=== PATIENT | female | born 1950 | race Caucasian/White ===

== ENCOUNTER 2023-03-22 12:31 | Outpatient (CLI) | payer MEDICARE, OTHER ==
[~2023-03-22 12:31] MED LIST: BARIUM SULFATE 700 MG TABLET PO ONE; barium sulfate 450ml oral suspension ONE
== END 2023-03-22 23:59 | disposition home or self-care (01) ==
LOC: RAD 12:31
PROVIDERS: ATTEND Internal Medicine Gastroenterology
DX: K44.9 Diaphragmatic hernia without obstruction or gangrene (principal); R13.10 Dysphagia, unspecified
CPT/HCPCS: 74220

== ENCOUNTER 2023-05-19 10:11 | Inpatient (IN) | payer MEDICARE, OTHER ==
[2023-05-18 10:09] LABS: BASOPHILS % (AUTO) 0.8 % (0-1); EOSINOPHILS # (AUTO) 0.1 X10'3 (0-0.9); EOSINOPHILS % (AUTO) 0.9 % (0-6); LYMPHOCYTES % (AUTO) 34.7 % (21-51); MEAN CORPUSCULAR HEMOGLOBIN 25.3 PG (27.0-31.0); MEAN CORPUSCULAR HGB CONC 33.5 g/dL (33.0-36.5); MEAN CORPUSCULAR VOLUME 75.3 FL (78-98); MEAN PLATELET VOLUME 7.8 FL (7.4-10.4); MONOCYTES # (AUTO) 0.4 X10'3 (0-0.9); MONOCYTES % (AUTO) 7.1 % (2-12); NEUTROPHILS # (AUTO) 3.3 X10'3 (1.8-7.7); NEUTROPHILS % (AUTO) 56.5 % (42-75); PRE OP HEMATOCRIT 35.1 % (35.0-45.0); PRE OP HEMOGLOBIN 11.8 g/dL (12.0-16.0); PRE OP PLATELET COUNT 265 X10'3 (140-440); RED BLOOD COUNT 4.66 X10'6 (4.20-5.60); RED CELL DISTRIBUTION WIDTH 15.9 % (11.5-14.5)
[2023-05-18 10:25] LABS: ALBUMIN 3.9 G/DL (3.4-5.0); ALBUMIN/GLOBULIN RATIO 1.1 (1.1-1.5); ALKALINE PHOSPHATASE 52 IU/L (46-116); BLOOD UREA NITROGEN 15 MG/DL (7-18); CHLORIDE 104 MMOL/L (99-107); CREATININE 0.88 MG/DL (0.40-0.90); PRE OP ALT 16 U/L (30-65); PRE OP ANION GAP 7 (8-16); PRE OP AST 17 U/L (10-37); PRE OP BILIRUB, TOTAL 0.3 MG/DL (0.0-1.0); PRE OP GLUCOSE 104 MG/DL (70-104); PRE OP SODIUM 141 MMOL/L (135-145); TOTAL CARBON DIOXIDE 30.4 MMOL/L (24-32); TOTAL PROTEIN 7.3 G/DL (6.4-8.2); eGFR 63 ML/MIN
[~2023-05-19] VITALS: Ht 160 cm; Wt 86.4 kg
[2023-05-19] VITALS (22 sets, daily range): BP systolic 101–148; BP diastolic 35–91
[2023-05-19] MEDS: cefazolin 2gm/D5W 100mL 100 ML IV ONE ×2 (05:30→11:03)
[~2023-05-19 10:11] MED LIST changes: -BARIUM SULFATE 700 MG TABLET PO ONE; +CLON-528 PO; +DULO60CA65 PO; +GABA-530 PO; +PHENYLephrine 10mg/ml 5ml injection IV ONE; +TIRZ2.5P SQ; +ZIPR80CA2 PO; -barium sulfate 450ml oral suspension ONE; +famotidine 20mg tablet PO ONE; +heparin 1,000 units/ml 10ml inj ONE; +protamine sulf. 10mg/ml inj. IV ONE; +ringers solution, lacted 1,000 ML IV SCH
[2023-05-19] MEDS ORDERED: ringers solution, lacted 1,000 ML IV SCH (10:55)
[2023-05-19] MEDS ORDERED: meperidine/PF 25mg/ml syringe IV PRN ×3 (10:55)
[2023-05-19] MEDS ORDERED: morphine 4 MG/ML inj SYRINge IV PRN (10:55)
[2023-05-19] MEDS ORDERED: morphine 2 MG/ML inj. syringe IV PRN (10:55)
[2023-05-19] MEDS ORDERED: ondansetron/PF 4mg/2ml inj IV PRN ×2 (10:55→14:55)
[2023-05-19] MEDS ORDERED: proCHLORperazine 10 MG/2 ml inj IV PRN (10:55)
[2023-05-19] MEDS ORDERED: BUPIVAcaine/PF 2.5 mg/ml (0.25%) 30ml vial ONE (11:37)
[2023-05-19] MEDS ORDERED: LIDOcaine 1% 30ml preserv. free vial ONE (11:37)
[2023-05-19] MEDS ORDERED: diazepam 5mg tablet PO ONE (11:40)
[2023-05-19] MEDS ORDERED: BUPIVAcaine/PF 2.5 mg/ml (0.25%) 30ml vial IJ ONE (12:00)
[2023-05-19] MEDS ORDERED: LIDOcaine 1% 30ml preserv. free vial IJ ONE (12:00)
[2023-05-19] MEDS ORDERED: dexamethasone sod phosphate 4mg/ml inj. ONE (12:06)
[2023-05-19] MEDS ORDERED: sevoflurane 250ml liquid IH ONE (12:06)
[2023-05-19] MEDS ORDERED: fentaNYL /PF 50mcg/ml 5ml ampule ONE (12:13)
[2023-05-19] MEDS ORDERED: midazolam 1 mg/ML 2ml injection ONE (12:13)
[2023-05-19] MEDS ORDERED: LIDOcaine 2% (20mg/ml) 5ml vial ONE (12:22)
[2023-05-19] MEDS ORDERED: propofol inj 20 ML IV ONE (12:22)
[2023-05-19] MEDS ORDERED: rocuronium 10mg/ml inj IV ONE (12:23)
[2023-05-19] MEDS ORDERED: ondansetron/PF 4mg/2ml inj ONE (14:20)
[2023-05-19] MEDS ORDERED: acetaminophen 1,000mg/100ml IV 100 ML IV ONE (14:20)
--- NOTE | 2023-05-19 14:47 | NUR ---
Received from OR via BED, accompanied by Anesthesiologist and report given by PATRICIO Anesthesiologist. PATIENT WAKING UP, DENIES PAIN, V/S WNL, SCD ON , PIV 20G RIGHT FOREARM, DERMABONDED LAPS SITES CLOSED C/D/I TO ABDOMEN. F/C DRAINING CLEAR YELLOW URINE. Addendum: 05/19/23 at 1507 by Mike Odonnell RN Amended: Links added.
[2023-05-19] MEDS ORDERED: HYDROmorph/NS 0.2 mg/ml PCA 100 ML IV SCH (14:55)
[2023-05-19] MEDS ORDERED: naloxone 0.4 mg/ml inj IV PRN (14:55)
[2023-05-19] MEDS ORDERED: clonazePAM 0.5mg tablet PO PRN (15:10)
[2023-05-19] MEDS ORDERED: gabapentin 100mg capsule PO PRN (15:10)
[2023-05-19] MEDS ORDERED: ziprasidone 20mg capsule PO SCH (15:10)
[2023-05-19] MEDS: HYDROmorph/NS 0.2 mg/ml PCA 100 ML IV SCH ×4 (16:14→23:00)
--- NOTE | 2023-05-19 16:33 | NUR ---
RECD REPORT FROM TIKA WOODS
--- NOTE | 2023-05-19 16:47 | NUR ---
PATIENT HAS MET ALL CRITERIA FOR TRANSFER TO ORTHO FLOOR. VSS. DRESSINGS INTACT. BED LOW, CALL LIGHT PRESENT AND 2 RAILS UP. RN PRESENT TO ACCEPT CARE OF PATIENT AND REPORT HAS BEEN CALLED. ALL QUESTIONS ANSWERED TO ACCEPTING RN. Addendum: 05/19/23 at 1654 by Mike Odonnell RN Amended: Links added.
--- NOTE | 2023-05-19 18:52 | NUR ---
Problems reprioritized. Patient report given, questions answered & plan of care reviewed with samaria mera rn.
[2023-05-20] MEDS ORDERED: PCA WASTE DOCUMENTATION 1 MG ML MC SCH
[2023-05-20] MEDS: HYDROmorph/NS 0.2 mg/ml PCA 100 ML IV SCH ×6 (01:00→11:00)
[2023-05-20 02:00] VITALS: BP 135/62
[2023-05-20 06:00] VITALS: BP 116/46
--- NOTE | 2023-05-20 06:48 | NUR ---
Patient in room ORTHO 4009. I have received report from Marianna Cabral and had the opportunity to ask questions and assume patient care.
[2023-05-20] MEDS ORDERED: duloxetine 30mg CAPSULE.DR PO SCH (08:00)
[2023-05-20] MEDS ORDERED: enoxaparin 40mg/0.4ml syringe SQ SCH (08:00)
[2023-05-20 10:01] VITALS: BP 136/56
[2023-05-20] MEDS ORDERED: oxyCODONE/APAP 5-325mg tablet PO PRN (11:50)
[2023-05-20] MEDS ORDERED: PER5325T PO (13:14)
--- NOTE | 2023-05-20 13:21 | NUR ---
Nutrition consult: Per EMR pt s/p hernia repair with mesh and modified Hill procedure. Pt seen at bedside with SO present for written and verbal nutrition therapy education which included diet progression and ONS coupons. Pt denies questions at this time and states she has protein drinks at home. RD contact information provided and pt/SO encouraged to reach out if needed. Will remain available. Addendum: 05/20/23 at [address] Amended: Links added.
[2023-05-20] MEDS ORDERED: PCA WASTE DOCUMENTATION 1 MG ML MC ONE (14:45)
== END 2023-05-20 14:00 | disposition home or self-care (01) | DRG 328 ==
LOC: PAS 10:11 → PAS IN 15:02 → ORTHO 4S 16:53
PROVIDERS: ADMIT Surgery; ATTEND Surgery
PROC: 0DQ64ZZ Repair Stomach, Percutaneous Endoscopic Approach (ICD-10-PCS; 2023-05-19)
PROC: 8E0W4CZ Robotic Assisted Procedure of Trunk Region, Percutaneous Endoscopic Approach (ICD-10-PCS; 2023-05-19)
PROC: 0BUT4JZ Supplement Diaphragm with Synthetic Substitute, Percutaneous Endoscopic Approach (ICD-10-PCS; principal; 2023-05-19 12:06)
DX: K44.9 Diaphragmatic hernia without obstruction or gangrene (principal); K74.60 Unspecified cirrhosis of liver; F32.A Depression, unspecified; Z79.899 Other long term (current) drug therapy
CPT/HCPCS: 36415; 71045; 80053; 82948; 85025; A4615; A4618; A5200; C1781; G0378; J0131; J0690; J1100; J1170; J1644; J1650; J2175; J2250; J2270; J2370; J2405; J2704; J2720; J3010; J3490; J7120